=== PATIENT | female | born 1995 | race Two or more races ===

== ENCOUNTER 2022-01-04 00:31 | Emergency (ER) | payer SELFPAY ==
[~2022-01-04] VITALS: Ht 180.3 cm; Wt 65.8 kg
[2022-01-04 00:32] VITALS: BP 112/67
== END 2022-01-04 03:56 | disposition left against medical advice (07) ==
LOC: ER 00:31
DX: S81.801A Unspecified open wound, right lower leg, initial encounter (principal); Z53.21 Procedure and treatment not carried out due to patient leaving prior to being seen by health care provider; X58.XXXA Exposure to other specified factors, initial encounter; Y93.89 Activity, other specified; Y92.9 Unspecified place or not applicable; Y99.8 Other external cause status